=== PATIENT | female | born 1980 | race Caucasian/White ===

== ENCOUNTER 2019-05-21 19:00 | Emergency (ER) | payer MEDICAID ==
[2019-05-21] MEDS ORDERED: Bacitracin 1 PK ONE (19:25)
== END 2019-05-21 19:38 | disposition home or self-care (01) ==
LOC: NAV ERS 19:00
DX: L02.31 Cutaneous abscess of buttock (principal); F31.9 Bipolar disorder, unspecified
CPT/HCPCS: 87070; 87077; 87205; 99283

== ENCOUNTER 2020-07-21 00:13 | Emergency (ER) | payer SELFPAY ==
[2020-07-21 00:44] LABS: Bilirubin Negative (Negative); Blood, Urine Negative (Negative); Clarity Clear (Clear); Glucose, Urine (Dipstick) Negative (Negative); Ketone, Urine Negative (Negative); Leukocyte Negative (Negative); Nitrite Negative (Negative); Protein, Urine (Dipstick) Negative (Neg-Trace)
[2020-07-21] MEDS ORDERED: Sodium Chloride 0.9% 1,000 ML ONE (01:20)
[2020-07-21 01:27] LABS: #Basophils 0.1 thou/uL (0.0-0.2); #Eosinphils 0.2 thou/uL (0.0-0.7); #Lymphocytes 2.2 thou/uL (1.20-3.40); #Monocytes 0.6 thou/uL (0.11-0.59); #Neutrophils 6.2 thou/uL (1.40-6.50); %Basophils 0.8 % (0.0-1.0); %Monocytes 6.8 % (0.0-10.0); %Neutrophils 66.5 % (42.0-75.0); Hemoglobin 13.5 g/dL (12.0-16.0); Mean Corpuscular HGB CONC 30.9 g/dL (32.0-36.0); Mean Corpuscular Hemoglobin 26.7 pg (27.0-31.0); Mean Corpuscular Volume 86.6 fL (78.0-98.0); Mean Platelet Volume 8.2 fL (7.4-10.4); Platelet Count 258 thou/uL (130-400); RBC Distribution Width 15.2 % (11.5-14.5); Red Blood Cell (RBC) Count 5.06 mill/uL (4.20-5.40); White Blood Cell (WBC) Count 9.3 thou/uL (4.8-10.8)
[2020-07-21 01:44] LABS: Amphetamine Detected (NotDetected); Barbiturates Screen Not Detected (NotDetected); Benzodiazepine Screen Not Detected (NotDetected); Cocaine Metabolite Screen Not Detected (NotDetected); Medtox Control Line Valid? VALID (VALID); Methadone Not Detected (NotDetected); Methamphetamine Detected (NotDetected); Opiate Screen Not Detected (NotDetected); Oxycodone Screen Not Detected (NotDetected); Phencyclidine (PCP) Not Detected (NotDetected); THC/Cannabinoid Screen Not Detected (NotDetected); Tricyclic Screen Not Detected (NotDetected)
[2020-07-21 01:44] LABS: ALT (SGPT) 18 U/L (8-55); AST (SGOT) 15 U/L (5-34); Albumin 3.9 g/dL (3.5-5.0); Alkaline Phosphatase 71 U/L (40-110); Anion Gap 15 mmol/L (10-20); BUN (Urea Nitrogen) 11 mg/dL (7.0-18.7); Bilirubin, Total 0.5 mg/dL (0.2-1.2); Calc. Creatinine Clearance 0 mL/min (70-130); Calcium 8.6 mg/dL (7.8-10.44); Carbon Dioxide 22 mmol/L (22-29); Chloride 103 mmol/L (98-107); Estimated GFR-MDRD 78; Globulin 3.1 g/dL (2.4-3.5); Glucose 88 mg/dL (70-105); Potassium 4.1 mmol/L (3.5-5.1); Sodium 136 mmol/L (136-145)
[2020-07-21] MEDS ORDERED: Naproxen 500 MG TAB ONE (01:58)
== END 2020-07-21 02:12 | disposition home or self-care (01) ==
LOC: NAV ERS 00:13
DX: M54.5 Low back pain (principal); E86.9 Volume depletion, unspecified; F31.9 Bipolar disorder, unspecified
CPT/HCPCS: 80053; 80306; 81003; 85025; 99283; J7050